=== PATIENT | female | born 1970 | race Caucasian/White ===

== ENCOUNTER 2017-04-18 09:55 | Emergency (ER) | payer BC ==
[2017-04-18] MEDS ORDERED: NS 0.9% 1000 ML* 1,000 ML IV ONE (10:24)
[2017-04-18 11:09] LABS: Hematocrit 38 % (35-47); Hemoglobin 12.9 g/dl (12.0-16.0); Mean Corpuscular HGB Conc 34 g/dl (31-36); Mean Corpuscular Hemoglobin 32 pg (27-31); Mean Corpuscular Volume 95 fL (80-97); Mean Platelet Volume 8 um3 (7.4-10.4); Red Blood Count 4.01 10^6/ul (4.0-5.4); Red Cell Distribution Width 13 % (10.5-15); White Blood Count 7.2 10^3/ul (3.5-10.8)
[2017-04-18 11:19] LABS: Albumin 3.9 g/dL (3.2-5.2); BUN/Creatinine Ratio 15.4 (8-20); C Reactive Protein 9.53 mg/L (< 5.00); EGFR African American 125.7 (>60); EGFR Non-African American 97.7 (>60); Globulin 4.3 g/dL (2-4); Potassium 3.7 mmol/L (3.5-5.0); Total Bilirubin 0.5 mg/dL (0.2-1.0); Total Protein 8.2 g/dL (6.4-8.9)
[2017-04-18] MEDS ORDERED: Ketorolac INJ* 30 MG/ML 1 ML VIAL IV PUSH ONE (11:59)
[2017-04-18 12:08] LABS: Urine Bacteria Absent (Absent); Urine Bilirubin Negative (Negative); Urine Glucose Negative (Negative); Urine Nitrite Negative (Negative)
--- NOTE | 2017-04-18 12:16 | ED ---
Abdominal Pain/Female - HPI Summary HPI Summary: Pt here w/ acute on chronic ab pain x 6 months. Started in LLQ and was seen at [facility]. (see below for course of care). States pain has been creeping across LLQ and today she developed pain around navel area (new). This is a stabbing pain. Has tried NSAID w/o relief. Has tried heat during menstrual cycles and acetaminophen w/ some relief. Eating and drinking well. No h/o GERD and no heartburn or pain w/ eating currenlty. Reports indigestion w/ carbonated beverages. Drinks ETOH on some weekends - sometimes pain is worse after drinking. Denies tobacco use currently but has h/o use. Reports menstruation has been abnormal since it started in her teens. No changes in pattern or flow as of late. Has had a pap smear - normal per pt. Also had a TVUS - normal per pt. She has not had a hysteroscopy and adamantly reports not wanting one. Still has both ovaries and no h/o cysts. - c- sections - no complications. LMP - few weeks ago - no current vaginal bleeding. H/o appendectomy at 11 y.o. Denies pain or difficulty w/ urination. Was seen in December 2016 at [facility] w/ this ab pain (LLQ). Labs were unremarkable. CT scan reveals mild thickening w/o inflammation of rectosigmoid area and small intestine. Report indicates this could be from enterocolitis. Was also found to have a small Lt renal cyst (0.7cm in size). She had subsequent f/u w/ GI a few weeks later. Note indicates pt c/o urinary retention and issues w/ constipation. She admits to constipation while here today and takes senna before bed nightly otherwise she doesn't move her bowels well. Colonoscopy report indicates poor prep and hemorrhoids. No diverticulosis/itis , no polyps although notes he could have missed something d/t poor prep. Recommends f/u in 2 years. GI report further recommends urology referral, most likely for c/o urinary retention and renal cyst. NOTE: brain aneurysm w/ coil placement -complication of coil breaking off and sending a piece into lobe affecting her speech - left w/ aphasia. No known AAA and denies ab pulsing. No LE pain/coolness/swelling. CT from [facility] indicates normal sized AA. - History of Current Complaint Chief Complaint: EDAbdPain Stated Complaint: LOWER ABD PAIN Time Seen by Provider: 04/18/17 10:29 Hx Obtained From: Patient, Family/Motion Picture Actor - - aids in HPI as pt has difficulty finding words Hx Last Menstrual Period: 06/05/14 Pain Intensity: 9 Allergies/Adverse Reactions: Allergies Allergy/AdvReac Type Severity Reaction Status Date / Time Sulfa Antibiotics Allergy Intermediate Hives Verified 04/18/17 10:09 Nitrofurantoin AdvReac Vomiting Verified 04/18/17 10:09 [From Macrodantin] PMH/Surg Hx/FS Hx/Imm Hx Previously Healthy: Yes Endocrine/Hematology History: Denies: Hx Anticoagulant Therapy, Hx Blood Disorders, Hx Thyroid Disease, Hx Anemia, Hx Unexplained Bleeding, Hx Coagulopothy Cardiovascular History: Reports: Hx Aneurysm - brain - repaired w/ coil - complication - piece broke off - damage, aphasia History: Reports: Other Problems/Disorders - has had abormal menstrual timing since starting it in teens Neurological History: Reports: Other Neuro Impairments/Disorders - aphasia - Surgical History Surgery Procedure, Year, and Place: brain surgery, back surgery, c-sections x 2 , appy, [facility] Infectious Disease History: No Infectious Disease History: Denies: Traveled Outside the [place] in Last 30 Days - Social History Alcohol Use: Weekly Substance Use Type: Reports: None Smoking Status (MU): Current Every Day Smoker Type: Cigarettes Amount Used/How Often: approx 1 pack per week Length of Time of Smoking/Using Tobacco: 30 yrs Have You Smoked in the Last Year: Yes Review of Systems Constitutional: Negative Negative: Fever, Chills Negative: Sore Throat, Ear Ache, Nasal Discharge Negative: Chest Pain Negative: Shortness Of Breath Positive: Abdominal Pain - see HPI, Nausea - couple of times a week. Negative: Vomiting, Diarrhea Positive: see HPI Musculoskeletal: Negative Skin: Negative Neurological: Negative Psychological: Normal - frustrated, concerned - wants an answer as to why she's having pain All Other Systems Reviewed And Are Negative: Yes Physical Exam Triage Information Reviewed: Yes Vital Signs On Initial Exam: Initial Vitals Temp Pulse Resp BP Pulse Ox 98.1 F 74 16 107/78 100 04/18/17 10:09 04/18/17 10:09 04/18/17 10:09 04/18/17 10:09 04/18/17 10:09 Vital Signs Reviewed: Yes Appearance: Positive: Well-Appearing, No Pain Distress, Well-Nourished Skin: Positive: Warm, Dry - healed vertical scar over lower midline of ab Head/Face: Positive: Normal Head/Face Inspection Eyes: Positive: Normal, EOMI, Conjunctiva Clear - anicteric sclera ENT: Positive: Hearing grossly normal, Pharynx normal - mucosa moist Neck: Positive: Supple, Nontender - no gross thryomegaly Respiratory/Lung Sounds: Positive: Clear to Auscultation, Breath Sounds Present Cardiovascular: Positive: Normal, RRR, Pulses are Symmetrical in both Upper and Lower Extremities, Other - no pulsatile mass in ab, no bruits appreciated upon auscultation. Negative: Leg Edema Left, Leg Edema Right Abdomen Description: Positive: No Organomegaly, Soft, Other: - pt reports TTP over LLQ, RUQ and around navel - no rebounding Bowel Sounds: Positive: Hypoactive Musculoskeletal: Positive: Normal, Strength/ROM Intact Neurological: Positive: Sensory/Motor Intact, Alert, Oriented to Person Place, Time, CN Intact II-III, Other - difficulty findings words - repeats " I have 1 ( points to LLQ), 2 (points to area between LLQ and navel) and 3 (points to navel ) and that's all!" - interprets she means she's having pain in these areas Psychiatric: Positive: Normal - calm and cooperative but frustrated at times - Guillaume Coma Scale Coma Scale Total: 15 Diagnostics - Vital Signs Vital Signs Temp Pulse Resp BP Pulse Ox 04/18/17 10:57 64 96 04/18/17 10:55 132/83 04/18/17 10:14 98.1 F 74 16 107/78 99 04/18/17 10:09 98.1 F 74 16 107/78 100 - Laboratory Lab Results: Lab Results 04/18/17 04/18/17 04/18/17 Range/Units 10:40 10:40 10:40 WBC 7.2 (3.5-10.8) 10^3/ul RBC 4.01 (4.0-5.4) 10^6/ul Hgb 12.9 (12.0-16.0) g/dl Hct 38 (35-47) % MCV 95 (80-97) fL MCH 32 H (27-31) pg MCHC 34 (31-36) g/dl RDW 13 (10.5-15) % Plt Count 206 (150-450) 10^3/ul MPV 8 (7.4-10.4) um3 Neut % (Auto) 65.4 (38-83) % Lymph % (Auto) 20.8 L (25-47) % [place] % (Auto) 11.8 H (1-9) % Eos % (Auto) 1.8 (0-6) % Baso % (Auto) 0.2 (0-2) % Absolute Neuts (auto) 4.7 (1.5-7.7) 10^3/ul Absolute Lymphs (auto) 1.5 (1.0-4.8) 10^3/ul Absolute Monos (auto) 0.8 (0-0.8) 10^3/ul Absolute Eos (auto) 0.1 (0-0.6) 10^3/ul Absolute Basos (auto) 0 (0-0.2) 10^3/ul Absolute Nucleated RBC 0.01 10^3/ul Nucleated RBC % 0.1 Sodium 138 (133-145) mmol/L Potassium 3.7 (3.5-5.0) mmol/L Chloride 104 (101-111) mmol/L Carbon Dioxide 28 (22-32) mmol/L Anion Gap 6 (2-11) mmol/L BUN 10 (6-24) mg/dL Creatinine 0.65 (0.51-0.95) mg/dL Est GFR ( Amer) 125.7 (>60) Est GFR (Non-Af Amer) 97.7 (>60) BUN/Creatinine Ratio 15.4 (8-20) Glucose 94 (70-100) mg/dL Lactic Acid 1.1 (0.5-2.0) mmol/L Calcium Pending Total Bilirubin 0.50 (0.2-1.0) mg/dL AST 20 (13-39) U/L ALT 15 (7-52) U/L Alkaline Phosphatase 74 (34-104) U/L C-Reactive Protein 9.53 H (< 5.00) mg/L Total Protein 8.2 (6.4-8.9) g/dL Albumin 3.9 (3.2-5.2) g/dL Globulin 4.3 H (2-4) g/dL Albumin/Globulin Ratio 0.9 L (1-3) Amylase 68 (29-103) U/L Lipase 30 (11.0-82.0) U/L Result Diagrams: 04/18/17 10:40 04/18/17 10:40 Lab Statement: Any lab studies that have been ordered have been reviewed, and results considered in the medical decision making process. Re-Evaluation - Re-Evaluation First Eval Change: Improved - s/p ketoralac Abdominal Pain Fem Course/Dx - Course Course Of Treatment: Pt reports dysuria while urinating.
--- NOTE | 2017-04-18 13:39 | RAD ---
INDICATION: Left lower quadrant pain and dysuria. COMPARISON: There are no prior studies available for comparison. TECHNIQUE: Frontal supine films of the abdomen were obtained. FINDINGS: The small bowel and colon appear nondistended. The patient appears to be status post posterior spinal fusion at the T12-L1 level with pedicle screws. IMPRESSION: NO EVIDENCE FOR OBSTRUCTION.
[2017-04-18 14:18] LABS: Calcium 9.6 mg/dL (8.6-10.3)
--- NOTE | 2017-04-18 15:36 | RAD ---
Indication: Left flank pain, hematuria. CT of the abdomen and pelvis was performed without oral or IV contrast administration. Coronal and sagittal reconstructed images were obtained. The lung bases demonstrate no pleural fluid, nodules or masses. Heart is of normal size without evidence of pericardial effusion. Liver is normal in size. No focal lesions or intrahepatic ductal dilatation is noted. The gallbladder demonstrates no calcific gallstones. No pericholecystic fluid or wall thickening is noted. The pancreas demonstrates no mass or pancreatic ductal dilatation. The spleen is normal in size. No adrenal masses are noted. The kidneys demonstrates no evidence of hydronephrosis or hydroureter. No evidence of obstructive uropathy is noted. CT of the pelvis demonstrates stool throughout the colon. No dilated loops of bowel are noted. The urinary bladder is unremarkable. No free fluid is noted. Aorta and inferior vena cava. There is hardware within the posterior elements with fusion of L1-T12. IMPRESSION: NO EVIDENCE OF OBSTRUCTIVE UROPATHY IS NOTED. NO OTHER MASSES OR FLUID COLLECTIONS ARE NOTED.
[2017-04-18 16:46] VITALS: BP 144/78
== END 2017-04-18 16:35 | disposition home or self-care (01) ==
LOC: ED 09:55
DX: R10.32 Left lower quadrant pain (principal); R11.0 Nausea; F17.210 Nicotine dependence, cigarettes, uncomplicated
CPT/HCPCS: 36415; 74000; 74176; 80053; 81003; 81015; 82150; 83605; 83690; 85025; 86140; 87077; 87086; 87186; 96374; 99283; J1885

== ENCOUNTER → 2017-06-24 11:03 | Emergency (ER) | payer BC | END | disposition left against medical advice (07) | LOC: ED 11:03 | DX: R10.9 Unspecified abdominal pain (principal); Z53.21 Procedure and treatment not carried out due to patient leaving prior to being seen by health care provider ==

== ENCOUNTER → 2017-10-26 11:26 | Emergency (ER) | payer MEDICAID, OTHER ==
[2017-10-26 11:45] VITALS: BP 104/71
== END | disposition left against medical advice (07) ==
LOC: ED 11:26
DX: R42 Dizziness and giddiness (principal); Z53.21 Procedure and treatment not carried out due to patient leaving prior to being seen by health care provider

== ENCOUNTER 2019-12-15 10:21 | Emergency (ER) | payer MEDICARE ==
[2019-12-15 10:29] VITALS: BP 125/77
== END 2019-12-15 12:00 | disposition left against medical advice (07) ==
LOC: ED 10:21
DX: M79.606 Pain in leg, unspecified (principal); R21 Rash and other nonspecific skin eruption; Z53.21 Procedure and treatment not carried out due to patient leaving prior to being seen by health care provider
CPT/HCPCS: 99281